=== PATIENT | male | born 1965 | race Caucasian/White ===

== ENCOUNTER 2019-02-26 10:42 | Emergency (ER) | payer OTHER ==
[2019-02-26] MEDS: CLINDAMYCIN 600 MG/D5W (PMX) 50 ML IVPB (11:24)
[2019-02-26] MEDS: DEXAMETHASONE 10 MG/ML 1 ML INJ IV (11:24)
[2019-02-26] MEDS: KETOROLAC 30 MG INJ IV (11:25)
[2019-02-26] MEDS: SOD CHLORIDE 0.9% 1,000 ML IV (11:26)
== END 2019-02-26 12:21 | disposition home or self-care (01) ==
LOC: FTE 10:42
DX: J36 Peritonsillar abscess (principal); I10 Essential (primary) hypertension; E11.9 Type 2 diabetes mellitus without complications; F17.210 Nicotine dependence, cigarettes, uncomplicated
CPT/HCPCS: 96365; 96375; 99284-25; J1100